=== PATIENT | female | born 1960 | race Caucasian/White ===

== ENCOUNTER 2018-09-22 13:56 | Outpatient (REF) | payer MEDICARE, SELFPAY ==
[2018-09-26 18:30] LABS: EDDP-by GC-MS 719 ng/mL; Methadone Interpretation Positive.; Methadone-by GC-MS 450 ng/mL
[2018-09-27 12:52] LABS: Codeine Negative ng/mL (Cutoff: 25); Dihydrocodeine Negative ng/mL (Cutoff: 25); Hydrocodone Negative ng/mL (Cutoff: 25); Hydromorphone Negative ng/mL (Cutoff: 25); Morphine Negative ng/mL (Cutoff: 25); Naloxone Negative ng/mL (Cutoff: 25); Norhydrocodone Negative ng/mL (Cutoff: 25); Noroxycodone 540 ng/mL (Cutoff: 25); Noroxymorphone Negative ng/mL (Cutoff: 25); Opiates Interpretation Positive.
== END 2018-09-22 14:16 ==
LOC: NCHCN 13:56
PROVIDERS: PCP Family Medicine; Visit Provider Family Medicine
DX: M06.9 Rheumatoid arthritis, unspecified (principal); Z51.81 Encounter for therapeutic drug level monitoring; Z79.899 Other long term (current) drug therapy
CPT/HCPCS: 80361; 80358

== ENCOUNTER 2018-12-22 13:48 | Outpatient (REF) | payer MEDICARE, SELFPAY ==
[2018-12-25 11:27] LABS: Amphetamine Negative ng/mL (Cutoff: 25); Amphetamines Interpretation Negative.; MDA (Ecstasy Metabolite) Negative ng/mL (Cutoff: 25); MDMA (Ecstasy) Negative ng/mL (Cutoff: 25); Methamphetamine Negative ng/mL (Cutoff: 25); Phentermine Negative ng/mL (Cutoff: 25); Pseudoephedrine/Ephedrine Negative ng/mL (Cutoff: 25)
== END 2018-12-22 14:08 ==
LOC: NCHCN 13:48
PROVIDERS: PCP Family Medicine; Visit Provider Family Medicine
DX: M06.9 Rheumatoid arthritis, unspecified (principal); M25.50 Pain in unspecified joint; Z51.81 Encounter for therapeutic drug level monitoring; Z79.899 Other long term (current) drug therapy
CPT/HCPCS: 80324

== ENCOUNTER 2019-06-16 10:59 | Outpatient (REF) | payer MEDICARE, SELFPAY ==
[2019-06-16 19:09] LABS: HCT 40.3 % (36.0-46.0); HGB 13.3 g/dL (12.0-15.5); Mean Corpuscular Hemoglobin 29.1 pg (27.0-33.0); Mean Corpuscular Volume 88.2 fL (80-95); Platelet Count 274 x1000/uL (130-400); RBC 4.57 m/cumm (4.00-5.20); RBC Distribution Width 15.8 % (11.7-14.6); White Blood Cell Count 9.85 k/cumm (4.4-10.8)
[2019-06-16 19:24] LABS: ALT 63 U/L (12-78); AST 38 U/L (15-37); Albumin 2.3 g/dL (3.4-5.0); Alkaline Phosphatase 148 U/L (46-116); BUN 3 mg/dL (7-18); Bilirubin, Total 0.4 mg/dL (0.2-1.0); CREATININE 0.67 mg/dL (0.55-1.02); Calcium 8.6 mg/dL (8.5-10.1); Chloride 103 mmol/L (98-107); Glucose 100 mg/dL (70-100); Sodium 141 mmol/L (136-145); Total Protein 7.6 g/dL (6.4-8.2)
== END 2019-06-16 11:19 ==
LOC: NCHCN 10:59
PROVIDERS: PCP Family Medicine; Visit Provider Family Medicine
DX: M06.9 Rheumatoid arthritis, unspecified (principal); K90.0 Celiac disease; Z71.6 Tobacco abuse counseling; M54.6 Pain in thoracic spine; B19.20 Unspecified viral hepatitis C without hepatic coma
CPT/HCPCS: 80053; 85027

== ENCOUNTER 2019-12-01 10:16 | Outpatient (REF) | payer MEDICARE, SELFPAY ==
--- NOTE | 2019-12-01 09:30 | PAPFT_PTH ---
PATIENT: KOFFI FERREIRA LOC: [facility]#:[id number] AGE/SX: 58/F ROOM: RE12/01/[address]: Fabiana Burgos V : 1960 BED: DIS: 12/01/2019 SPEC #: [id number] RECD: 12/01/19 18:20 STATUS: HUBERT RESj #: [id number] GLORIA: 12/01/19 09:[address]: Fabiana Burgos V DEPT: [facility] Cytology RECD BY: Angela Vega Tissues: 1 - CX/ENDOCX FOR PAP SMEARS Procedures: PAP THIN PREP/[facility] Screening HPV DNA PROBE Comments: [id number]
== END 2019-12-01 10:36 ==
LOC: NCHCN 10:16
PROVIDERS: PCP Family Medicine; Visit Provider Family Medicine
DX: N89.8 Other specified noninflammatory disorders of vagina (principal); Z12.4 Encounter for screening for malignant neoplasm of cervix
CPT/HCPCS: 88142; 87480; 87510; 87624; 87660

== ENCOUNTER 2020-08-22 15:40 | Outpatient (CLI) | payer MEDICARE, SELFPAY ==
[2020-08-22 15:38] LABS: Abs Immature Grans 0.08 10^3/uL (0.0-0.06); Absolute Basophil Count 0.04 10^3/uL (0.0-0.2); Absolute Eosinophil Count 0.03 10^3/uL (0.0-0.7); Absolute Lymphocyte Count 0.99 10^3/uL (1.2-3.4); Absolute Monocyte Count 0.86 10^3/uL (0.1-0.8); Absolute Neutrophil Count 12.33 10^3/uL (1.2-6.7); Basophils % 0.3; Eosinophils % 0.2; HCT 39.3 % (36.0-46.0); HGB 12.3 g/dL (11.2-15.7); Immature Grans % 0.6; Lymphocytes % 6.9; MCH 25.3 pg (27.0-33.0); MCHC 31.3 % (32.0-36.0); MCV 80.7 fL (80-95); MPV 8.8 fL (8.0-11.0); Nucleated RBC 0 %; Platelet Count 288 10^3/uL (130-400); RBC 4.87 10^6/uL (3.93-5.22); RDW 16.6 % (11.7-14.6); RDW-SD 48.1 fL; WBC 14.34 10^3/uL (4.4-10.8)
[2020-08-22 16:09] LABS: ALT 20 U/L (14-59); AST 90 U/L (15-37); Albumin 3.1 g/dL (3.4-5.0); Alkaline Phosphatase 155 U/L (46-116); BUN 12 mg/dL (7-18); Bilirubin, Total 0.7 mg/dL (0.2-1.0); CREATININE 0.61 mg/dL (0.55-1.02); Calcium 8.5 mg/dL (8.5-10.1); Chloride 96 mmol/L (98-107); Glucose 128 mg/dL (74-106); Potassium 3.5 mmol/L (3.5-5.1); Sodium 138 mmol/L (136-145); TSH 0.43 uIU/mL (0.36-3.74); Total Protein 6.9 g/dL (6.4-8.2)
== END 2020-08-22 16:00 ==
PROVIDERS: PCP Family Medicine; Visit Provider Internal Medicine Hematology & Oncology
DX: Z79.899 Other long term (current) drug therapy (principal); C50.912 Malignant neoplasm of unspecified site of left female breast; C78.7 Secondary malignant neoplasm of liver and intrahepatic bile duct
CPT/HCPCS: 36415; 80053; 84436; 84443; 85025

== ENCOUNTER 2020-08-29 04:09 | Outpatient (CLI) | payer MEDICARE, SELFPAY ==
[2020-08-29 14:33] LABS: Absolute Basophil Count 0.03 10^3/uL (0.0-0.2); Absolute Lymphocyte Count 0.85 10^3/uL (1.2-3.4); Absolute Monocyte Count 1.04 10^3/uL (0.1-0.8); Absolute Neutrophil Count 13.36 10^3/uL (1.2-6.7); Basophils % 0.2; Eosinophils % 0.5; HCT 37.5 % (36.0-46.0); HGB 11.9 g/dL (11.2-15.7); Immature Grans % 0.6; Lymphocytes % 5.5; MCH 25.9 pg (27.0-33.0); MCHC 31.7 % (32.0-36.0); MCV 81.5 fL (80-95); Monocytes % 6.7; Neutrophils % 86.5; Nucleated RBC 0 %; Platelet Count 278 10^3/uL (130-400); RDW 16.9 % (11.7-14.6); RDW-SD 48.9 fL; WBC 15.45 10^3/uL (4.4-10.8)
[2020-08-29 14:35] LABS: Absolute Eosinophil Count 0.08 10^3/uL (0.0-0.7)
[2020-08-29 14:52] LABS: ALT 25 U/L (14-59); AST 119 U/L (15-37); Albumin 2.9 g/dL (3.4-5.0); Alkaline Phosphatase 148 U/L (46-116); Anion Gap 9.5 mmol/L (3-11); BUN 14 mg/dL (7-18); CO2 26.5 mmol/L (21.0-32.0); CREATININE 0.65 mg/dL (0.55-1.02); Calcium 8.7 mg/dL (8.5-10.1); Chloride 97 mmol/L (98-107); Glucose 135 mg/dL (74-106); Potassium 3.9 mmol/L (3.5-5.1); Sodium 133 mmol/L (136-145); T4 11.1 ug/mL (4.7-13.3); TSH 2.07 uIU/mL (0.36-3.74); Total Protein 6.7 g/dL (6.4-8.2)
== END 2020-08-29 04:29 ==
PROVIDERS: PCP Family Medicine; Visit Provider Internal Medicine Hematology & Oncology
DX: C50.912 Malignant neoplasm of unspecified site of left female breast (principal); C78.7 Secondary malignant neoplasm of liver and intrahepatic bile duct; Z79.899 Other long term (current) drug therapy
CPT/HCPCS: 36415; 80053; 84436; 84443; 85025

== ENCOUNTER 2020-09-05 10:28 | Outpatient (CLI) | payer MEDICARE, SELFPAY ==
[2020-09-05 10:47] LABS: Abs Immature Grans 0.11 10^3/uL (0.0-0.06); HCT 38.9 % (36.0-46.0); HGB 12.8 g/dL (11.2-15.7); MCH 26.4 pg (27.0-33.0); MCHC 32.9 % (32.0-36.0); MCV 80.2 fL (80-95); MPV 8.9 fL (8.0-11.0); Nucleated RBC 0 %; Platelet Count 279 10^3/uL (130-400); RBC 4.85 10^6/uL (3.93-5.22); RDW-SD 50.8 fL
[2020-09-05 11:07] LABS: Absolute Lymphocyte Count 1.28 10^3/uL (1.2-3.4); Absolute Neutrophil Count 18.83 10^3/uL (1.2-6.7); Atypical Lymphocytes % 1; Bands % 8
[2020-09-05 11:08] LABS: Absolute Monocyte Count 1.28 10^3/uL (0.1-0.8); Anisocytosis 2+; Diff Comment Manual Differential; Hypochromasia 1+; Polychromasia Present
[2020-09-05 11:10] LABS: ALT 28 U/L (14-59); AST 146 U/L (15-37); Albumin 2.5 g/dL (3.4-5.0); Alkaline Phosphatase 193 U/L (46-116); Anion Gap 8.3 mmol/L (3-11); BUN 27 mg/dL (7-18); Bilirubin, Total 0.8 mg/dL (0.2-1.0); CO2 26.7 mmol/L (21.0-32.0); CREATININE 0.74 mg/dL (0.55-1.02); Calcium 8.3 mg/dL (8.5-10.1); Chloride 93 mmol/L (98-107); Glucose 124 mg/dL (74-106); Potassium 4.3 mmol/L (3.5-5.1); Sodium 128 mmol/L (136-145); T4 9.1 ug/mL (4.7-13.3); TSH 2.46 uIU/mL (0.36-3.74); Total Protein 6.1 g/dL (6.4-8.2)
== END 2020-09-05 10:48 ==
PROVIDERS: PCP Family Medicine; Visit Provider Internal Medicine Hematology & Oncology
DX: C50.912 Malignant neoplasm of unspecified site of left female breast (principal); C78.7 Secondary malignant neoplasm of liver and intrahepatic bile duct; Z79.899 Other long term (current) drug therapy
CPT/HCPCS: 36415; 80053; 84436; 84443; 85025